=== PATIENT | male | born 1950 | race Caucasian/White ===

== ENCOUNTER → 2016-07-01 | Outpatient (CLI) | payer MEDICARE, OTHER ==
--- NOTE | 2016-07-01 18:14 | REP ---
CERVICAL SPINE, EIGHT VIEWS: HISTORY: Spondylosis. There is no acute fracture. The C4-5 through C7-T1 intervertebral discs are decreased in height consistent with disc degeneration. Osteophytes are present on C4 through C7. There is narrowing of the right C3 through C6 and left C4 through C6 neural foramina secondary to uncinate process hypertrophy. There are 3 mm of anterior subluxation of C3 on C4 with flexion. This is not seen in neutral or extension radiographs. IMPRESSION: Degenerative change as described above. Signed by Jc Rush MD 07/02/2016 08:45 A
--- NOTE | 2016-07-01 18:17 | REP ---
LUMBAR SPINE, SEVEN VIEWS: HISTORY: Spondylosis. There is no acute fracture or subluxation. The intervertebral discs are decreased in height. Vacuum phenomenon is present at the L4-5 level. These findings are consistent with disc degeneration. Osteophytes are present throughout the lumbar spine. There is narrowing of the L4-5 and L5-S1 facet joints. IMPRESSION: Degenerative change as described above. Signed by Jc Rush MD 07/02/2016 08:46 A
--- NOTE | 2016-07-01 18:32 | REP ---
MRI BRAIN WITHOUT CONTRAST: HISTORY: Normal pressure hydrocephalus. Several punctate areas of increased signal intensity on T2-weighted images are present in the periventricular and subcortical white matter. This represents small vessel ischemic disease. There is no intraparenchymal hemorrhage, infarct, mass or midline shift. The ventricular system and cortical sulci are dilated. The degree of ventricular dilatation is out of proportion to that seen in the cortical sulci. Exaggerated flow phenomenon is present in the third and fourth ventricles and aqueduct of Sylvius. There is no extracerebral collection. The sinuses are clear. IMPRESSION: There is dilatation of the ventricular system out of proportion to that seen in the cortical sulci. Exaggerated flow phenomenon is present in the third and fourth ventricle and aqueduct of Sylvius. These findings can be seen in normal pressure hydrocephalus. Signed by Jc Rush MD 07/02/2016 08:46 A
--- NOTE | 2016-07-02 09:44 | REP ---
MRI CERVICAL SPINE WITHOUT CONTRAST: HISTORY: Spondylosis. A disc bulge is present at the C3-4 level. There is mild effacement of the thecal sac without spinal cord compression. Bilateral uncinate process and facet hypertrophy are present. These findings produce moderate narrowing of the C3 neural foramina. A disc bulge with associated osteophyte formation is present at the C4-5 level. There is moderate effacement of the thecal sac without spinal cord compression. Bilateral uncinate process and facet hypertrophy are present. These findings produce moderate narrowing of the C4 neural foramina. A disc bulge with associated osteophyte formation is present at the C5-6 level. There is moderate effacement of the thecal sac without spinal cord compression. Bilateral uncinate process and right facet hypertrophy are present. These findings produce minimal and mild narrowing of the right and left C5 neural foramina respectively. A disc bulge with associated osteophytes formation is present at the C6-7 level. There is mild effacement of the thecal sac without spinal cord compression. Bilateral uncinate process hypertrophy is present. This produces minimal and mild narrowing of the right and left C6 neural foramina respectively. There is no other disc bulge or herniation. The remaining neural foramina are patent. The spinal cord is normal in signal intensity. There is no intradural extramedullary lesion. The C4-5 through C6-7 intervertebral discs are decreased in height consistent with disc degeneration. Increased signal intensity on T2-weighted images is present in the end plates of the C5-7 vertebral bodies. This represents degenerative change. IMPRESSION: There is cervical spondylosis at the C3-4 through C6-7 levels without spinal cord compression. Signed by Jc Rush MD 07/02/2016 09:57 A
--- NOTE | 2016-07-02 09:53 | REP ---
MR LUMBAR SPINE WITHOUT CONTRAST: HISTORY: Spondylosis. Decreased signal intensity on T2-weighted images is present in the L1-2 through L5-S1 intervertebral discs. The discs are decreased in height. These findings are consistent with disc degeneration. There is no disc bulge or herniation at the L1-2 level. The L1 nerves exit the neural foramina without compression. A diffuse disc bulge is present in the L2-3 level. There is minimal compression of the thecal sac. There is hypertrophy of the posterior articulating facets. The L2 nerves exit the neural foramina without compression. A diffuse disc bulge is present at the L3-4 level. There is minimal compression of the thecal sac. There is hypertrophy of the posterior articulating facets. The L3 nerves exit the neural foramina without compression. A diffuse disc bulge is small right paracentral disc extrusion are present at the L4-5 level. There is inferior migration of disc material. There is hypertrophy of the ligamenta flava and posterior articulating facets. These findings produce moderate central canal stenosis. There is compression of the right L4 nerve in the neural foramen. The left L4 nerve exits the neural foramen without compression. A diffuse disc bulge is present at the L5-S1 level. There is minimal compression of the thecal sac. There is hypertrophy of the posterior articulating facets. There is compression of the L5 nerves in the neural foramina. The conus medullaris is normal in appearance terminating at the level of the L1-2 intervertebral disc. Increased signal intensity on T2 weighted images is present in the endplates of the L2-5 vertebral bodies. This presents degenerative change. IMPRESSION: 1. Diffuse disc bulges at the L2-3, L3-4, and L5-S1 levels with minimal thecal sac compression. There is compression of the L5 nerves in the neural foramina. 2. Moderate central canal stenosis at the L4-5 level secondary to disc bulge, disc extrusion, ligamentous and facet hypertrophy. There is compression of the right L4 nerve in the neural foramen. Signed by Jc Rush MD 07/02/2016 09:57 A
== END ==
LOC: M RAD 15:26
PROVIDERS: ATTEND Neurological Surgery
DX: M47.892 Other spondylosis, cervical region (principal); M47.896 Other spondylosis, lumbar region; G91.2 (Idiopathic) normal pressure hydrocephalus

== ENCOUNTER → 2016-07-16 | Outpatient (CLI) | payer MEDICARE, OTHER ==
[2016-07-16 13:30] LABS: APPEARANCE, CSF CLEAR (CLEAR); COLOR, CSF COLORLESS (COLORLESS); CSF DIFF IF INDICATED? NO (NO); CSF DILUENT LOT # 6053; CSF TUBE# CELL CNT TUBE 4; RBC CSF AUTO 9 /mm3 (0-0); WBC CSF AUTO 2 /mm3 (0-10)
[2016-07-16 13:32] LABS: GLUCOSE CSF 73 MG/DL (40-75)
--- NOTE | 2016-07-16 15:38 | REP ---
Procedure: For guidance for lumbar puncture. History: Incontinence and unsteady gait The procedure was performed under the direct supervision of Dr. Rush. The risks and benefits of the procedure were explained to the patient and informed consent was obtained. The L3-4 interspace was localized using fluoroscopic guidance. The skin was prepped and draped in a sterile fashion. 1% lidocaine was used as a local anesthetic. Using fluoroscopic guidance a 22-gauge spinal needle was inserted and advanced into the thecal sac. The opening pressure measured 10 centimeters of water. 12 ml of spinal fluid was withdrawn and sent to lab. Closing pressure measured less than 10 cm of water. The the patient tolerated the procedure well and there were no immediate complications. After the appropriate amount of monitored convalescence the patient was discharged from the department. 7 seconds of fluoro time was utilized for this procedure. Reviewed by CRESCENCIO Bartlett 07/16/2016 02:17 PSigned by Jc Rush MD 07/16/2016 03:30 P
== END ==
LOC: M RADPRO 11:18
PROVIDERS: ATTEND Neurological Surgery
DX: G91.2 (Idiopathic) normal pressure hydrocephalus (principal)

== ENCOUNTER → 2016-08-04 | Outpatient (REF) | payer MEDICARE, OTHER | LOC: M LAB REF 16:15 | PROVIDERS: ATTEND Neurological Surgery | DX: Z01.818 Encounter for other preprocedural examination (principal); G91.2 (Idiopathic) normal pressure hydrocephalus ==

== ENCOUNTER → 2016-08-05 | Outpatient (CLI) | payer MEDICARE, OTHER ==
[2016-08-05 14:30] LABS: BASO % 0.4 % (0.0-1.0); EOS % 0.6 % (0.0-3.0); LARGE UNSTAINED CELL # 0.2 K/mm3 (0.0-0.4); LARGE UNSTAINED CELL % 2.4 % (0.0-4.0); LYMPH # 1.4 K/mm3 (1.5-4.5); LYMPH % 20.9 % (24.0-44.0); MEAN CORPUSCULAR HEMOGLOBIN 29.8 pg (27.0-33.0); MEAN CORPUSCULAR HGB CONC 33.3 g/dl (32.0-36.5); MEAN CORPUSCULAR VOLUME 89.4 fl (80.0-96.0); MONO # 0.5 K/mm3 (0.0-0.8); MONO % 6.8 % (0.0-5.0); NEUTROPHILS # 4.7 K/mm3 (1.8-7.7); NEUTROPHILS % 68.9 % (36.0-66.0); PLATELET COUNT, AUTOMATED 178 k/mm3 (150-450); RED CELL DISTRIBUTION WIDTH 12.6 % (11.5-14.5); WHITE BLOOD COUNT 6.8 K/mm3 (4.0-10.0)
[2016-08-05 14:31] LABS: INR 1.03
[2016-08-05 14:37] LABS: ALBUMIN/GLOBULIN RATIO 1.38 (1.00-1.93); ALKALINE PHOSPHATASE 118 U/L (45-117); ALT/SGPT 49 U/L (12-78); ANION GAP 6 MEQ/L (8-16); AST/SGOT 25 U/L (15-37); BILIRUBIN,TOTAL 0.9 MG/DL (0.2-1.0); BLOOD UREA NITROGEN 18 MG/DL (7-18); CALCIUM LEVEL 8.7 MG/DL (8.8-10.2); CARBON DIOXIDE LEVEL 31 MEQ/L (21-32); CHLORIDE LEVEL 104 MEQ/L (98-107); CREATININE FOR GFR 0.85 MG/DL (0.70-1.30); GLOMERULAR FILTRATION RATE > 60.0 (>49); GLUCOSE, FASTING 95 MG/DL (80-110); POTASSIUM SERUM 4.3 MEQ/L (3.5-5.1); SODIUM LEVEL 141 MEQ/L (136-145); TOTAL PROTEIN 6.9 GM/DL (6.4-8.2)
--- NOTE | 2016-08-05 14:49 | REP ---
Chest two views HISTORY: Cough Comparison: None The lungs are hyperinflated. The lungs are clear. The heart is normal in size. The pulmonary vasculature is normal in appearance. Degenerative change is present in the thoracic spine. IMPRESSION: No acute disease. Signed by Jc Rush MD 08/05/2016 02:41 P
[2016-08-05 14:53] LABS: COLLAGEN ADP 101 SECONDS (56-103)
--- NOTE | 2016-08-05 15:55 | ECGEPIP ---
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
== END ==
LOC: M LAB 13:38
PROVIDERS: ATTEND Neurological Surgery
DX: Z01.818 Encounter for other preprocedural examination (principal); R05 Cough; G91.2 (Idiopathic) normal pressure hydrocephalus; Z79.01 Long term (current) use of anticoagulants

== ENCOUNTER 2016-09-07 07:50 | Inpatient (IN) | payer MEDICARE, OTHER ==
--- NOTE | 2016-09-04 16:46 | HPEPDOC ---
General Date of Admission 09/07/2016 Chief Complaint The patient is a 66-year-old male admitted with a reason for visit of Normal Pressure Hydrocephalus. History of Present Illness Jc Avendaño is a pleasant 66-year-old right-handed male former smoker with a history of NPH, diabetes mellitus type 2, hypercholesterolemia, and hypertension who will be undergoing a planned CSF shunt surgery 09/07/[address] Batista. He is present today, 09/04/2016, with his Marisela who provides most of his history. His NPH has been a chronic problem that was diagnosed in [place] in 2012. He states that his symptoms have become more problematic. These symptoms include an unstable shuffling gait, frequent urination with occasional stress incontinence, and issues with his short-term and long-term memory. Patient states that he is unable to sit for 3 hours, however his claims that he sits in his chair "all night." He requires use of a quad cane during ambulation. His states that he will forget where the rooms are in the house and he must look at a diagram in order to remember. He had his deny any mood changes, irritability, or agitation. He denies fever, night sweats , headaches, numbness, weakness, tingling, increased fatigue, dizziness, weight loss or gain, significant changes in energy, chest pain, shortness of breath, abdominal pain, nausea or vomiting, or any bowel changes. He denies any prior head injuries. He has not had any recent infection or illness. Home Medications Scheduled (Multivitamin Men) 1 Tab Tab 1 TAB PO DAILY (Reported) Alfuzosin Hydrochloride (Alfuzosin HCl ER) 10 Mg Tab 10 MG PO DAILY (Reported) Aspirin (Aspirin 81) 81 Mg Tab 81 MG PO DAILY (Reported) Atorvastatin Calcium (Atorvastatin Calcium) 20 Mg Tab 20 MG PO DAILY (Reported ) Celecoxib (Celebrex) 100 Mg Cap 100 MG PO DAILY (Reported) UNSURE OF DOSE ALREADY STOPPED Donepezil Hcl (Donepezil HCl) 10 Mg Tab 10 MG PO DAILY (Reported) Finasteride (Proscar) 5 Mg Tab 5 MG PO DAILY (Reported) Lisinopril (Lisinopril) 5 Mg Tab 5 MG PO DAILY (Reported) Metformin Hydrochloride (Metformin HCl) 500 Mg Tab 1,000 MG PO BID (Reported) Sitagliptin Phosphate (Januvia) 25 Mg Tab 25 MG PO DAILY (Reported) Allergies Coded Allergies: No Known Allergies (Unverified , 08/31/16) Past Medical History Medical History Patient's adult medical history includes hypertension, diabetes mellitus type 2 , normal pressure hydrocephalus, hypercholesterolemia, lumbar spondylosis, cervical spondylosis, and occipital neuralgia. Surgical History Left THR 2013 Family History Mother: Leukemia, diabetes ( 86) Father: Smoker, emphysema ( 86) Sister: Multiple sclerosis 2 children aged 33 and 30, healthy Social History Recent Travel/Sick Contacts: Denies: Recent sick contacts, Recent travel Patient's prior occupation was in [employer]. He is not currently working and stopped at the age of 58. His household members include his and his dog. He is a former smoker 1 pack per day. He started smoking at the age of 19 and quit in 1985. Reports he rarely drinks alcohol, mainly socially. He denies any illicit drug use. Review of Symptoms Constitutional: Denies: Chills, Fatigue, Fever, Lethargy, Malaise, Night Sweats , Other, Weakness, Weight Loss Eyes: Denies: Conjunctivae inflammation, Eyelid inflammation, Other, Pain, Redness, Vision change ENT: Denies: Ear Pain, Epistaxis, Head Aches, Sore Throat Skin: Denies: Lesions, Rash Pulmonary: Denies: Cough, Dyspnea, Pleuritic Chest Pain Cardiovascular: Denies: Chest Pain, Edema, Lt Headedness, Orthopnea, Palpitations Gastrointestinal: Denies: Constipation, Diarrhea, Nausea, Vomiting Genitourinary: Reports: Frequency, Incontinence, Denies: Dysuria Hematologic: Denies: Bleeding Excessively, Bruising Endocrine: Denies: Polydipsia, Polyphagia, Polyuria Musculoskeletal: Reports: Back Pain Neurological: Reports: Confusion, Incoordination, Denies: Numbness, Seizures, Weakness Psych: Reports: Memory Issues, Mood Normal, Denies: Anxiety, Depression Physical Examination General Exam: Positive: Alert, Cooperative, No Acute Distress Eye Exam: Positive: Conjunctiva & lids normal, PERRLA ENT Exam: Positive: Atraumatic, Mucous membr. moist/pink, Pharynx Normal Neck Exam: Positive: Supple, Negative: Lymphadenopathy Chest Exam: Positive: Clear to auscultation, Normal air movement Heart Exam: Positive: Rate Normal (heart sounds are distant) Abdomen Exam: Positive: Soft, Negative: Tenderness Extremity Exam: Negative: Clubbing, Cyanosis, Edema, Normal pulses (radial pulses are 2+ bilaterally and dorsalis pedis pulse is 1+ bilaterally) Skin Exam: Negative: Nl turgor and temperature (skin is dry with mildly decreased turgor) Neuro Exam: Positive: Cranial Nerves 3-12 NL (with the exception of course extraocular movements and mild over shooting.), Other (patient is alert and oriented to person and place. Rate and flow speech is ordinary. Speech is fluent. Muscle strength is 5 out of 5 and equal bilaterally. No significant atrophy is present. DTRs are symmetric but decreased throughout. No ankle clonus bilaterally. Negative Babinski. Sensation is decreased to vibration and sharp distally and lower extremities and intact in upper extremities. There is mild dysmetria and bradykinesia with rapid alternating movements of each hand and foot. Gait was assessed with the use of his quad cane. He is noted to have a shuffling and unsteady gait. Because of this, tandem walking was deferred. Romberg's is positive. On back examination there is tenderness over the sacroiliac joints, worse on the right side.) Psych Exam: Positive: Mood NL Vital Signs His blood pressure is 122/61 mmHg, HR 51, Height (in): 76 Weight (kg): 111.3 BMI (kg): 29.8 Assessment/Plan 1. Normal pressure hydrocephalus 2. Sacroiliitis 3. Occipital neuralgia 4. Cervical spondylosis 5. Lumbar spondylosis Plan / VTE VTE Prophylaxis Ordered?: Yes Plan Plan Patient and his wish to proceed with the CSF shunt surgery which would be a right ventriculoperitoneal shunt. LIVESTOCK PRODUCER shunt has been scheduled for Wednesday, . Patient and his understand the surgery has risk and that he is a high risk candidate considering his multiple comorbidities and long history of tobacco use. Patient and his understand the scope, expected outcome, sequela in all possible risk of surgery. They understand that the risks include but are not limited to , coma, CSF leak, meningitis, seizures or status epilepticus, persistence or worsening of symptoms and/or deficits, persistent vegetative state, dependency on life support measures, loss of all bodily functions, bleeding, CVA, bowel perforation, peritonitis, shunt migration and/ or failure of surgery, need for multiple surgeries, infection, [place], PE, DVT, and any catastrophic sequela. SRIRAM WYNN PA-C Sep 04, 2016 16:46
[2016-09-07] VITALS (10 sets, daily range): BP systolic 116–145; BP diastolic 57–97
[~2016-09-07] VITALS: Ht 193 cm; Wt 109.5 kg
[~2016-09-07 07:50] MED LIST: ALFU10TA2 PO; ASPI1TAB PO; ATOR1TAB21 PO; CELE100C PO; DONETAB6 PO; JANU25TA PO; LISI-542 PO; METF500T PO; MULT1TAB11 PO; PROS5TAB PO
[2016-09-07] MEDS ORDERED: LR 1,000 ML IV SCH ×2 (08:00→14:00)
[2016-09-07] MEDS ORDERED: CEFUROXIME SODIUM 1.5 GM in D5W MINI-BAG PLUS 50 ML IV ONE (08:00)
[2016-09-07] MEDS ORDERED: dexameTHASONE 4 MG/ML 1ML VIAL (J1100) IV ONE (09:00)
[2016-09-07] MEDS ORDERED: fentaNYL 100 MCG/2 ML INJECTION (J3010) As Ordered ONE (09:45)
[2016-09-07] MEDS ORDERED: NEOSTIGMINE 1MG/ML 5 ML SYRINGE (J2710) As Ordered ONE (09:46)
[2016-09-07] MEDS ORDERED: LIDOCAINE 2% INJ 100 MG/5 ML SDV (FOR ANES.) As Ordered ONE (09:46)
[2016-09-07] MEDS ORDERED: GLYCOPYRROLATE INJ 0.2 MG/ML 2 ML VIAL As Ordered ONE (09:46)
[2016-09-07] MEDS ORDERED: PROPOFOL 200 MG/20 ML VIAL As Ordered ONE (09:46)
[2016-09-07] MEDS ORDERED: ROCURONIUM BROMIDE 50 MG/5 ML VIAL As Ordered ONE ×2 (09:46→11:42)
[2016-09-07] MEDS ORDERED: MIDAZOLAM INJ 2 MG/2 ML VIAL (J2250) As Ordered ONE (09:46)
[2016-09-07] MEDS ORDERED: NAFCILLIN SOD 1 GM VIAL (S0032) As Ordered ONE (10:17)
[2016-09-07] MEDS ORDERED: LIDOCAINE W/EPINEPHRINE 1% 20ML VIAL As Ordered ONE (10:17)
[2016-09-07] MEDS ORDERED: THROMBIN SOLN 20,000 UNITS KIT As Ordered ONE (10:17)
[2016-09-07] MEDS ORDERED: ePHEDrine SULFATE 25 MG/5 ML(5MG/ML) SYRINGE As Ordered ONE (11:32)
[2016-09-07] MEDS ORDERED: fentaNYL 250 MCG/5 ML INJECTION (J3010) As Ordered ONE (11:48)
[2016-09-07] MEDS ORDERED: dexameTHASONE 4 MG/ML 1ML VIAL (J1100) As Ordered ONE ×2 (11:50→12:14)
[2016-09-07] MEDS ORDERED: ONDANSETRON 4MG/2ML VIAL (J2405) As Ordered ONE ×2 (13:20→13:55)
[2016-09-07] MEDS ORDERED: KCL 20MEQ IN D5/.45NACL 1000ML As Ordered ONE (13:58)
[2016-09-07] MEDS ORDERED: ONDANSETRON 4MG/2ML VIAL (J2405) IV PRN (14:00)
[2016-09-07] MEDS ORDERED: PERCOCET 5MG/325MG TAB PO PRN (14:00)
[2016-09-07] MEDS ORDERED: METOCLOPRAMIDE INJ 10MG/2ML VIAL (J2765) IV PRN (14:00)
[2016-09-07 14:05] LABS: GLUCOSE CSF 79 MG/DL (40-75)
[2016-09-07] MEDS: KCL 20MEQ IN D5/0.45NS 1000ML 1,000 ML IV SCH (14:05)
[2016-09-07] MEDS: fentaNYL 100 MCG/2 ML INJECTION (J3010) IV PRN ×4 (14:08→14:35)
[2016-09-07] MEDS: HYDROmorphone HCL 1 MG/ML SYRINGE (J1170) IV PRN ×3 (14:28→14:50)
[2016-09-07] MEDS ORDERED: HYDROmorphone HCL 1 MG/ML SYRINGE (J1170) As Ordered ONE (14:32)
[2016-09-07] MEDS ORDERED: GLUCOSE 4 GM CHEW TABLET PO PRN (15:00)
[2016-09-07] MEDS ORDERED: DEXTROSE 50% 50 ML SYRINGE IV PRN (15:00)
[2016-09-07] MEDS ORDERED: GLUCAGON FOR INJ 1 MG VIAL (J1610) SC PRN (15:00)
[2016-09-07] MEDS: NAFCILLIN SOD 1 GM in D5W MINI-BAG PLUS 100 ML IV SCH ×2 (16:43→20:52)
[2016-09-07] MEDS: HumaLOG INSULIN (NovoLOG) PER UNIT SC SCH ×2 (16:59→20:43)
[2016-09-07] MEDS: ATORVASTATIN 20 MG TAB PO SCH (20:52)
[2016-09-07] MEDS: FINASTERIDE 5 MG TAB PO SCH (20:52)
--- NOTE | 2016-09-07 22:18 | CR ---
DATE OF CONSULTATION: 09/07/2016 TIME PATIENT WAS SEEN: This afternoon at 1530. CONSULTING PHYSICIAN: Dr. Batista WAXING MACHINE OPERATOR: Dr. Laura Mejias REASON FOR CONSULTATION: Medical management. CHIEF COMPLAINT: Normal pressure hydrocephalus. HISTORY OF PRESENT ILLNESS: A 66-year-old male admitted for elective normal pressure hydrocephalus shunting placement with Dr. Batista with a past medical history of normal pressure hydrocephalus, type 2 diabetes, hypercholesterolemia, hypertension. Received surgery by Dr. Batista today for the shunt placement. Patient was interviewed in the intensive care unit (ICU). He denies any discomfort since the surgery. From patient, the surgery was a success. Patient currently feels better than before the surgery started. Denies any blurred vision. Any change of smell, hearing, or taste. Denies any weakness on any side of his body. Denies any slurred speech. Denies any chest pain, trouble bleeding, abdominal pain, nausea, vomiting, diarrhea, or constipation. Patient's last bowel movement was yesterday, which was normal. Denies any bleeding from anywhere besides the surgical sites. ALLERGIES: No known drug allergies. HOME MEDICATIONS: Including: - alfuzosin extended release 10 mg one tablet by mouth daily - aspirin 81 mg one tablet by mouth daily - atorvastatin 20 mg one tablet by mouth daily - Celebrex 100 mg one tablet by mouth daily - donepezil 10 mg one tablet by mouth daily - Proscar 5 mg one tablet by mouth daily - lisinopril 5 mg one tablet by mouth daily - metformin 1000 mg one tablet by mouth twice a day - multivitamin one tablet by mouth daily - Januvia 25 mg one tablet by mouth daily PAST MEDICAL HISTORY: 1. Type 2 diabetes, [id number]. 2. Normal pressure hydrocephalus. 3. Hyperlipidemia. 4. Hypertension. 5. Arthritis. 6. Benign prostatic hypertrophy (BPH). 7. Hyperlipidemia. PAST SURGICAL HISTORY: Including left total hip replacement in 2012. SOCIAL HISTORY: Patient denies any smoking. Quit 30 years ago. Denies any drinking or recreational drug use. Patient used to be in [employer] and used to play football. Patient lives with his and his dog. FAMILY HISTORY: Mother had leukemia and diabetes. Father was a smoker and had emphysema. Sister had multiple sclerosis. REVIEW OF SYSTEMS: GENERAL: Patient denies fevers or chills, any recent traveling or sick contact, weight loss. HEENT: Denies any changes with vision, smell, hearing, or taste, any headaches. Denies any sore throat, trouble swallowing. CARDIOVASCULAR: Denies any chest pain, trouble breathing. PULMONARY: Denies any trouble breathing. GASTROINTESTINAL: Denies any abdominal pain, nausea, vomiting, diarrhea, or constipation. GENITOURINARY: Denies any problem with urination. Hematology/oncology: Denies any easy bruising, any bleeding anywhere. Endocrine: Admits to type 2 diabetes. Denies any excessive heat or cold intolerance. MUSCULOSKELETAL: Admits to arthritis. NEUROLOGIC: Denies any weakness on any one side of his body. Prior to surgery patient does have shuffling gait, being unstable with gait, and long-term memory problems per medical record; however, patient, himself, is a poor historian. PSYCHIATRIC: Denies any problem with anxiety or depression, however, admits to problem with memory. PHYSICAL EXAMINATION: VITAL SIGNS: Temperature 97.2, pulse 91, respirations 16, blood pressure 129/78, oxygen was saturating at 97% on 3 liters of nasal cannula. GENERAL: Patient is a tall, elderly male who was well developed, well nourished. Does not appear to be in distress, resting comfortably in intensive care unit (ICU) bed with the head elevated at 30 degrees. HEENT: Normocephalic. Patient did have surgical incisions at the right side of his temporoparietal region. Incision was dry, clean, and intact. Pupils equal, round, and reactive to light. Mucous membranes moist. NECK: Supple. No neck lymphadenopathy. Patient does have a shunt extending through subcutaneously at the right side; otherwise, patient's eyebrow raise was equal bilaterally. Tongue protruding was midline. Sensations were intact in the face. CARDIOVASCULAR: Regular rate and rhythm. S1, S2. No murmurs, rubs, or gallops. LUNGS: Clear to auscultation bilaterally. No wheezes, rales, or rhonchi. ABDOMEN: Positive bowel sounds. Soft, nontender, nondistended. No peritoneal signs. No ecchymosis. EXTREMITIES: No edema, clubbing, or cyanosis. SKIN: Warm and dry. NEUROLOGIC: Cranial nerves II-XII intact. No focal neurologic deficit. LABORATORY DATA: No new labs currently. Patient did have a CSF fluid analysis, which is mostly pending. Glucose was 79, and total protein was 71.5. Patient's Accu-Chek glucose was 133 and 147. No new imaging. CURRENT MEDICATIONS: At this point, including: - nafcillin 1 gram IV every 6 hours - D5W as needed - glucose 16 grams as needed - glucagon 1 mg as needed - potassium chloride with D5 at a rate of 100 mL per hour ASSESSMENT AND PLAN: A 66-year-old male with a past medical history of normal pressure hydrocephalus, type 2 diabetes, [id number], hyperlipidemia, hypertension, benign prostatic hypertrophy (BPH), and arthritis presents with normal pressure hydrocephalus status post ventriculoperitoneal (PAPER LATCHER) shunt, postoperative day number [address] Batista. Patient tolerated procedure well. Wound care, pain management, and diet per neurosurgery, Dr. Batista. Will continue to follow their recommendations. 2. [id number]-ktlegukmi type 2 diabetes. Continue insulin sliding scale before meals and at bedtime. Continue fingersticks and continue patient on carbohydrate-consistent diet. IV fluid per general surgery. 3. Osteoarthritis. Pain management per general surgery. 4. Hyperlipidemia. Continue home statin. 5. Hypertension. Will hold lisinopril 5 mg for now and restart as needed. 6. BPH, stable. Will continue Proscar. 7. Normal pressure hydrocephalus with donepezil. Will hold for now and restart as needed. 8. Deep vein thrombosis (DVT) prophylaxis, on sequential compression devices (SCDs) and management per neurosurgery. DISPOSITION: Will continue to follow neurosurgery, continue to manage patient medically, and continue neurologic checks. Patient has been discussed with attending doctor, Dr. Mejias. Patient will be going to Dr. Mondragon tomorrow. My preceptor for this patient encounter was Dr. Laura Mejias. The preceptor was physically present in the building during the encounter and was fully available as needed. All aspects of the patient interview, examination, medical decision making process, and medical care plan development were reviewed and approved by the preceptor. The preceptor is aware and concurs with the plan as stated in the body of this note and will attest to such by his/her co-signature.
[2016-09-08] VITALS (18 sets, daily range): BP systolic 91–131; BP diastolic 48–78
[2016-09-08] MEDS: KCL 20MEQ IN D5/0.45NS 1000ML 1,000 ML IV SCH (00:15)
[2016-09-08] MEDS: NAFCILLIN SOD 1 GM in D5W MINI-BAG PLUS 100 ML IV SCH ×4 (05:12→21:03)
[2016-09-08 05:17] LABS: BASO % 0.1 % (0.0-1.0); EOS # 0.1 K/mm3 (0.0-0.50); EOS % 0.5 % (0.0-3.0); LARGE UNSTAINED CELL # 0.1 K/mm3 (0.0-0.4); LARGE UNSTAINED CELL % 0.5 % (0.0-4.0); LYMPH # 0.8 K/mm3 (1.5-4.5); LYMPH % 4.9 % (24.0-44.0); MEAN CORPUSCULAR HEMOGLOBIN 29.9 pg (27.0-33.0); MEAN CORPUSCULAR HGB CONC 33.4 g/dl (32.0-36.5); MEAN CORPUSCULAR VOLUME 89.4 fl (80.0-96.0); MONO # 0.8 K/mm3 (0.0-0.8); MONO % 5.3 % (0.0-5.0); NEUTROPHILS # 13.8 K/mm3 (1.8-7.7); NEUTROPHILS % 88.7 % (36.0-66.0); PLATELET COUNT, AUTOMATED 184 k/mm3 (150-450); RED CELL DISTRIBUTION WIDTH 12.4 % (11.5-14.5); WHITE BLOOD COUNT 15.6 K/mm3 (4.0-10.0)
[2016-09-08 05:31] LABS: ALBUMIN 3.2 GM/DL (3.2-5.2); ALBUMIN/GLOBULIN RATIO 0.97 (1.00-1.93); ALKALINE PHOSPHATASE 105 U/L (45-117); ALT/SGPT 31 U/L (12-78); ANION GAP 9 MEQ/L (8-16); AST/SGOT 16 U/L (15-37); BILIRUBIN,TOTAL 0.8 MG/DL (0.2-1.0); BLOOD UREA NITROGEN 11 MG/DL (7-18); CALCIUM LEVEL 8.3 MG/DL (8.8-10.2); CARBON DIOXIDE LEVEL 26 MEQ/L (21-32); CHLORIDE LEVEL 106 MEQ/L (98-107); CREATININE FOR GFR 0.98 MG/DL (0.70-1.30); GLOMERULAR FILTRATION RATE > 60.0 (>49); GLUCOSE, FASTING 192 MG/DL (80-110); POTASSIUM SERUM 4.2 MEQ/L (3.5-5.1); SODIUM LEVEL 141 MEQ/L (136-145); TOTAL PROTEIN 6.5 GM/DL (6.4-8.2)
[2016-09-08] MEDS: HumaLOG INSULIN (NovoLOG) PER UNIT SC SCH ×4 (08:08→20:37)
--- NOTE | 2016-09-08 10:28 | RO ---
DATE OF PROCEDURE: 09/07/2016 PREPROCEDURE DIAGNOSIS: Normal pressure hydrocephalus. POSTPROCEDURE DIAGNOSIS: Normal pressure hydrocephalus. PROCEDURE: Ventriculoperitoneal shunt insertion. SURGEON: Dr. Jer Real ASSISTING PHYSICIAN: Dr. Rachael Batista ESTIMATED BLOOD LOSS: For my portion of the case was minimal. COMPLICATIONS: None. INDICATIONS FOR PROCEDURE: Patient is a 66-year-old male patient of Dr. Batista's who has had problems with dementia and shuffling of his feet. He had improvement after a spinal tap therefore recommendation was to proceed with PIANO REFINISHER shunt placement. Risks and benefits of the procedure were discussed with Dr. Batista. The risks and benefits of my portion of procedure were also discussed, which included, but are not limited to bleeding, infection, hernia formation, damage to surrounding structures, shunt infection, and need for further surgery. Informed consent was obtained and the procedure was planned. PROCEDURE: The patient was brought back to operating room 1 and placed in the supine position. After induction of anesthesia, the right scalp, neck, chest, and the entire abdomen were sterilely prepped and draped. Next, a time-out was done to confirm proper patient and proper procedure. Following that a 2 cm supraumbilical incision was made in the midline and then Dr. Batista did his portion of procedure on the right neck and right scalp, tunneled the catheter from the abdomen all the way up to the neck and scalp. He then completed that portion of the procedure. Once the catheter was tunneled, I did another 5 mm incision in the left upper quadrant. Veress needle was inserted and the abdomen was insufflated to 15 mmHg. Next, a Veress needle was removed. A 5 mm Optiview port was used to gain access to the abdomen. Once abdomen was entered, needle was placed through the supraumbilical incision into the abdomen under direct visualization, followed by the passage of a guidewire. Once a guidewire was placed, it was followed down into the pelvis. The needle was then removed and a split sheath introducer was placed over top of it. The guidewire was then removed, and the PIANO REFINISHER shunt was placed through the split sheath introducer and all the way down into the pelvis under direct visualization. Split sheath introducer was removed. The abdomen was desufflated. Skin incision at the left upper quadrant and the supraumbilical were closed with #4-0 Vicryl subcuticular suture. The abdomen was then cleaned and dried. Steri-Strips, 4x4 and tape were applied, thus ending my portion of the procedure.
--- NOTE | 2016-09-08 11:35 | IPNPDOC ---
Date Seen The patient was seen on 09/08/16. Progress Note Hospitalist Progress Note Subjective: Patient states that he feels well, other than some pain in his shoulder. Objective: Physical Exam: Vitals: Vital Sign - Last 24 Hours 09/07/16 09/07/16 09/07/16 09/07/16 13:46 14:01 14:08 14:16 Temp 97.7 Pulse 124 107 102 Resp 20 20 16 18 B/P 143/70 131/71 137/85 Pulse Ox 89 96 95 96 O2 Delivery Nasal Cannula Nasal Cannula Nasal Cannula Nasal Cannula O2 Flow Rate 3 3 3.0 3 09/07/16 09/07/16 09/07/16 09/07/16 14:17 14:20 14:28 14:30 Temp 97.2 97.5 97.5 Pulse 57 88 88 Resp 16 16 B/P 121/74 143/77 143/77 Pulse Ox 96 95 98 98 O2 Delivery Nasal Cannula Nasal Cannula Nasal Cannula Nasal Cannula O2 Flow Rate 3.0 3.0 3.0 3.0 09/07/16 09/07/16 09/07/16 09/07/16 14:30 14:31 14:35 14:36 Temp 97.5 Pulse 94 94 88 Resp 16 16 B/P 129/64 132/68 143/77 Pulse Ox 97 97 3 98 O2 Delivery Nasal Cannula Nasal Cannula Nasal Cannula Nasal Cannula O2 Flow Rate 3 3 3.0 3.0 09/07/16 09/07/16 09/07/16 09/07/16 14:45 14:50 15:00 15:34 Temp 97.5 97.2 97.6 Pulse 88 91 88 Resp B/P 143/77 129/78 133/81 Pulse Ox 98 98 97 97 O2 Delivery Nasal Cannula Nasal Cannula Nasal Cannula O2 Flow Rate 3.0 3 2.0 09/07/16 09/07/16 09/07/16 09/07/16 16:00 16:30 17:00 17:30 Pulse 88 78 76 76 Resp 24 24 B/P 129/72 122/97 145/78 124/93 Pulse Ox 96 97 98 96 O2 Delivery Nasal Cannula Nasal Cannula Nasal Cannula Nasal Cannula O2 Flow Rate 2.0 2.0 2.0 2.0 09/07/16 09/07/16 09/07/16 09/07/16 18:00 20:00 21:00 22:01 Temp 96.4 Pulse 70 64 63 69 Resp 22 20 18 20 B/P 127/57 127/58 119/71 123/58 Pulse Ox 97 95 94 91 O2 Delivery Nasal Cannula Room Air Room Air Room Air O2 Flow Rate 2.0 09/07/16 09/08/16 09/08/16 09/08/16 23:01 00:01 01:01 02:01 Temp 96.8 Pulse 61 57 57 56 Resp 18 20 18 20 B/P 116/60 108/61 116/62 119/56 Pulse Ox 95 94 96 97 O2 Delivery Room Air Room Air Room Air Room Air 09/08/16 09/08/16 09/08/16 09/08/16 03:01 04:01 05:01 06:01 Temp 97.3 Pulse 60 55 54 52 Resp 20 20 18 B/P 98/55 114/57 113/59 91/48 Pulse Ox 95 98 95 94 O2 Delivery Room Air Room Air Room Air Room Air 09/08/16 09/08/16 09/08/16 08:00 09:00 10:00 Temp 98.2 Pulse 63 56 60 Resp 20 20 B/P 98/52 119/62 107/65 Pulse Ox 97 96 O2 Delivery Room Air Room Air General: Awake, alert, sitting in the chair. HEENT: Moist mucous membranes CV: Regular rate and rhythm, no murmurs rubs or gallops Lungs: Clear to Auscultation bilaterally Abd: Soft, nontender, nondistended Extremities: No edema Neuro: Alert And oriented 3, normal speech Psych: Normal mood and affect Labs and Imaging: Laboratory Tests 09/08/16 04:53 Calcium Level 8.3 L, Aspartate Amino Transf (AST/SGOT) 16, Alanine Aminotransferase (ALT/SGPT) 31, Alkaline Phosphatase 105, Total Bilirubin 0.8, Total Protein 6.5, Albumin 3.2, Red Blood Count 4.53, Mean Corpuscular Volume 89.4, Mean Corpuscular Hemoglobin 29.9, Mean Corpuscular Hemoglobin Concent 33.4 , Red Cell Distribution Width 12.4, Neutrophils (%) (Auto) 88.7 H, Lymphocytes ( %) (Auto) 4.9 L, Monocytes (%) (Auto) 5.3 H, Eosinophils (%) (Auto) 0.5, Basophils (%) (Auto) 0.1, Neutrophils # (Auto) 13.8 H, Lymphocytes # (Auto) 0.8 L, Monocytes # (Auto) 0.8, Eosinophils # (Auto) 0.1, Basophils # (Auto) 0.0 Assessment and Plan: 66-year-old male with hypertension, hyperlipidemia, diabetes mellitus type 2, normal pressure hydrocephalus, BPH who underwent PAN PUSHER shunt with Dr. Batista. We have been asked to see the patient in consultation for medical management of his diabetes and hypertension. 1. Hypertension: Currently holding home TORO inhibitor. Blood pressure has been soft. We'll continue to hold this. 2. Diabetes mellitus type 2: Clear currently holding the patient's home metformin and Januvia. We will continue to use sliding scale insulin while the patient is in-house. 3. Hyperlipidemia: Continue home statin. 4. BPH: Continue home Proscar. DVT prophylaxis: As per his surgical team VS, I&O, 24H, Fishbone Vital Signs/I&O Vital Signs Date Time Temp Pulse Resp B/P Pulse Ox O2 Delivery O2 Flow Rate FiO2 09/08/16 10:00 60 107/65 09/08/16 09:00 20 96 Room Air 09/08/16 08:00 98.2 09/07/16 18:00 2.0 I&O- Last 24 Hours up to 6 AM 09/08/16 05:59 Intake Total 3640 ml Output Total 2050 ml Balance 1590 ml Laboratory Data 24H LABS Laboratory Tests 2 09/07/16 14:05: Bedside Glucose (Misc Panel) 147H 09/07/16 16:56: Bedside Glucose (Misc Panel) 202H 09/07/16 20:42: Bedside Glucose (Misc Panel) 223H 09/08/16 04:53: Blood Urea Nitrogen 11, Creatinine 0.98, Sodium Level 141, Potassium Level 4.2, Chloride Level 106, Carbon Dioxide Level 26, Calcium Level 8.3L, Aspartate Amino Transf (AST/SGOT) 16, Alanine Aminotransferase (ALT/SGPT) 31, Alkaline Phosphatase 105, Total Bilirubin 0.8, Total Protein 6.5, Albumin 3.2, Albumin/ Globulin Ratio 0.97L, Anion Gap 9, White Blood Count 15.6H, Red Blood Count 4.53 , Hemoglobin 13.5L, Hematocrit 40.4L, Mean Corpuscular Volume 89.4, Mean Corpuscular Hemoglobin 29.9, Mean Corpuscular Hemoglobin Concent 33.4, Red Cell Distribution Width 12.4, Platelet Count 184, Neutrophils (%) (Auto) 88.7H, Lymphocytes (%) (Auto) 4.9L, Monocytes (%) (Auto) 5.3H, Eosinophils (%) (Auto) 0.5, Basophils (%) (Auto) 0.1, Neutrophils # (Auto) 13.8H, Lymphocytes # (Auto) 0.8L, Monocytes # (Auto) 0.8, Eosinophils # (Auto) 0.1, Basophils # (Auto) 0.0, Glomerular Filtration Rate > 60.0, Large Unclassified Cells # 0.1, Large Unclassified Cells % 0.5 CBC/BMP Laboratory Tests 09/08/16 04:53 Calcium Level 8.3 L, Aspartate Amino Transf (AST/SGOT) 16, Alanine Aminotransferase (ALT/SGPT) 31, Alkaline Phosphatase 105, Total Bilirubin 0.8, Total Protein 6.5, Albumin 3.2, Red Blood Count 4.53, Mean Corpuscular Volume 89.4, Mean Corpuscular Hemoglobin 29.9, Mean Corpuscular Hemoglobin Concent 33.4 , Red Cell Distribution Width 12.4, Neutrophils (%) (Auto) 88.7 H, Lymphocytes ( %) (Auto) 4.9 L, Monocytes (%) (Auto) 5.3 H, Eosinophils (%) (Auto) 0.5, Basophils (%) (Auto) 0.1, Neutrophils # (Auto) 13.8 H, Lymphocytes # (Auto) 0.8 L, Monocytes # (Auto) 0.8, Eosinophils # (Auto) 0.1, Basophils # (Auto) 0.0 JAVIER BUSTILLO Sep 08, 2016 11:35
[2016-09-08] MEDS: LIDOCAINE 5% (LIDODERM) PATCH TD SCH (11:51)
[2016-09-08] MEDS: ACETAMINOPHEN TAB 650MG DOSE (2X325MG) PO PRN ×2 (11:52→19:59)
--- NOTE | 2016-09-08 11:52 | RO ---
DATE OF PROCEDURE: 09/07/2016 PREOPERATIVE DIAGNOSIS: Hydrocephalus/normal pressure hydrocephalus (NPH) dementia. POSTOPERATIVE DIAGNOSIS: Hydrocephalus/normal pressure hydrocephalus (NPH) dementia. Brain swelling. PROCEDURE: Placement of right ventriculoperitoneal shunt using Medtronic Strata valve programmed at 1.5. Multiple right frontal lobe biopsies. SURGEON: Rachael Batista MD SURGEON: Dr. Jer Real, for the abdominal portion. UTILIZATION MANAGEMENT UM NURSE: None. ANESTHESIA: General. FINDINGS: Please see my office notes for detailed preoperative evaluation. Patient with progressive dementia, gait failure and urinary incontinence. Patient and his were seen in the preoperative area. There was no gross change in his dementia or his neurological status, though his felt that he is getting still worse since the time I saw him. His also had a degree of confusion as she claims she does not know why she or the patient is here, and after sharing my office notes, she realized that she had all the information she needs and she wished to proceed with the surgery. The patient would have lapses or orientation times three and during these moments he was aware that he is here for a shunt surgery. After all matters pertaining to surgery, anesthesia, and followup care have been discussed with her again, she wished to proceed with surgery. She understood the salvage nature of the procedure and also understood the scope, expected outcome and all possible complications of surgery. She understood the risk of surgery included, but not limited to , spinal fluid leakage, meningitis, persistence or worsening of symptoms and/or deficits, failure of surgery and/or hardware, need for multiple surgeries, seizure disorder, status epilepticus, loss of any or all vital bodily functions, dependency on life support measures, persistent vegetative state, intracerebral bleeding and/or any catastrophic sequelae. The patient and his understood the salvage nature of he procedure. After informed consent and after all matters pertaining to surgery, anesthesia and followup care have been discussed with her again, she wished to proceed with surgery. DESCRIPTION OF PROCEDURE: Once in the operating room, general endotracheal anesthesia was given. The area of surgery was prepped and draped in the usual sterile fashion. A right coronal skin incision was given, the galea was reached. The wound edges were held apart with the help of self retaining retractors. The periosteum was scraped. A bur hole was created in the usual fashion, about 2 cm from the midline and the coronal suture. The dura was opened and a small corticectomy was performed and small pieces of brain were sent for pathological diagnosis. The brain appeared to be swollen and edematous. At this time, an abdominal skin incision was given and the right umbilical and paramedian region. Anterior rectus sheath was reached. A shunt tunneler was then tunneled from this abdominal incision to the coronal incision using the help of two 10 incisions. The shunt assembly was now connected to a Medtronic Strata valve, which was programmed at 1.5. The valve was secured with #2-0 silk ties with the peritoneal catheter, and at this time, a ventriculostomy was performed. Spinal fluid gushed out and the pressure appeared to be between 30 or 40, and it gushed out over my gown, several centimeters away. After the stylette was removed from the ventriculostomy, it was connected to the shunt valve and secured with #2-0 silk. At the conclusion of this procedure, the shunt was flowing freely at the peritoneal ends. Dr. Real then performed a laparotomy and placed the catheter in the abdominal cavity. The details of his procedure will be found in his dictation note. The three cranial wounds were closed in anatomical layers. Blood loss was about 30 mL or less. The patient tolerated the procedure well and was transferred to the recovery room in stable condition. At the time of this dictation in the recovery room, he was awake and alert and verbalizing and following commands without any gross focal motor deficits. cc: Harshal Story MD *Leodan Arroyo MD
[2016-09-08 20:40] LABS: RBC CSF AUTO 59 /mm3 (0-0); WBC CSF AUTO 2 /mm3 (0-10)
[2016-09-08 20:43] LABS: APPEARANCE, CSF CLEAR (CLEAR); COLOR, CSF COLORLESS (COLORLESS); CSF DIFF IF INDICATED? NO (NO)
[2016-09-08 20:44] LABS: CSF DILUENT LOT # 6165; CSF TUBE# CELL CNT TUBE 3
[2016-09-08] MEDS: **NOTE PATIENT COMMENT** MISC XX SCH (21:00)
[2016-09-08] MEDS: FINASTERIDE 5 MG TAB PO SCH (21:03)
[2016-09-08] MEDS: ATORVASTATIN 20 MG TAB PO SCH (21:03)
[2016-09-09] VITALS (12 sets, daily range): BP systolic 89–134; BP diastolic 54–75
[2016-09-09] MEDS: ACETAMINOPHEN TAB 650MG DOSE (2X325MG) PO PRN ×3 (03:20→21:31)
[2016-09-09] MEDS: NAFCILLIN SOD 1 GM in D5W MINI-BAG PLUS 100 ML IV SCH ×4 (03:20→21:26)
[2016-09-09 05:23] LABS: BASO % 0.2 % (0.0-1.0); EOS % 0.6 % (0.0-3.0); LARGE UNSTAINED CELL # 0.2 K/mm3 (0.0-0.4); LYMPH # 2.5 K/mm3 (1.5-4.5); LYMPH % 24.8 % (24.0-44.0); MEAN CORPUSCULAR HEMOGLOBIN 30.2 pg (27.0-33.0); MEAN CORPUSCULAR HGB CONC 33.9 g/dl (32.0-36.5); MONO # 0.8 K/mm3 (0.0-0.8); MONO % 8.9 % (0.0-5.0); NEUTROPHILS # 5.9 K/mm3 (1.8-7.7); NEUTROPHILS % 63.5 % (36.0-66.0); PLATELET COUNT, AUTOMATED 165 k/mm3 (150-450); RED CELL DISTRIBUTION WIDTH 12.7 % (11.5-14.5); WHITE BLOOD COUNT 9.2 K/mm3 (4.0-10.0)
[2016-09-09 06:02] LABS: ALBUMIN 2.9 GM/DL (3.2-5.2); ALBUMIN/GLOBULIN RATIO 0.94 (1.00-1.93); ALKALINE PHOSPHATASE 93 U/L (45-117); ALT/SGPT 26 U/L (12-78); ANION GAP 8 MEQ/L (8-16); AST/SGOT 14 U/L (15-37); BILIRUBIN,TOTAL 0.8 MG/DL (0.2-1.0); BLOOD UREA NITROGEN 12 MG/DL (7-18); CARBON DIOXIDE LEVEL 29 MEQ/L (21-32); CHLORIDE LEVEL 105 MEQ/L (98-107); CREATININE FOR GFR 0.91 MG/DL (0.70-1.30); GLOMERULAR FILTRATION RATE > 60.0 (>49); GLUCOSE, FASTING 144 MG/DL (80-110); POTASSIUM SERUM 3.5 MEQ/L (3.5-5.1); SODIUM LEVEL 142 MEQ/L (136-145)
[2016-09-09] MEDS: HumaLOG INSULIN (NovoLOG) PER UNIT SC SCH ×4 (07:27→21:00)
--- NOTE | 2016-09-09 08:24 | IPN ---
DATE: 09/09/2016 66-year-old gentleman seen at bedside, status post INTERNAL AUDIT CONSULTANT shunt placed by Dr. Batista a few days ago. Doing well. Eating breakfast sitting up in chair. Nursing informs me that he did appear to be slightly wobbly last night. Otherwise he does appear to be ambulating better today and they informed me that physical therapy is supposed to stop by to see him again to reassess him today as well. Otherwise he denies any headache, blurry vision, double vision. No nausea, vomiting, chest pain, shortness of breath and feels his appetite is good. OBJECTIVE: Temperature is 99.1, pulse 46, respiratory rate is 20, blood pressure 121/60, SpO2 is 94% on room air. Intake and output since midnight: 700 in and 900 out with a negative fluid balance of 200 mL. GENERAL: The patient appears to be in no acute distress. He is alert and oriented, pleasant to talk to. He does have wound sites on the left parietal and posterior portion of the scalp from the INTERNAL AUDIT CONSULTANT shunt placement, these appear to be granulating well and healing well with no signs of infection. Eyes are pupils equal, round, and reactive to light and accommodation. Throat clear. LUNGS: Clear. HEART: Regular rate and rhythm. ABDOMEN: Soft. EXTREMITIES: He did have some slight puffiness noted in the hands bilaterally. However, the extremities have no lower extremity edema or calf tenderness. Pulses are equal. Sensation is equal. LABORATORY DATA: White count is 9.2, hemoglobin 13.0, platelets are 165,000, sodium 142, potassium 3.5, chloride 105, bicarbonate 29, anion gap 8, BUN is 12, creatinine 0.91, glucose is 144, AST is 14, ALT 26, alkaline phosphatase 93, albumin is 2.9. ASSESSMENT/PLAN: 1. Normal pressure hydrocephalus status post INTERNAL AUDIT CONSULTANT shunt placement by Dr. Batista. The patient appears to be doing well. The wound sites appear to be healing well and he is to have physical therapy reevaluate him today to see how he is doing with his ambulation. Otherwise he does appear to be doing well and defer further issues regarding the INTERNAL AUDIT CONSULTANT shunt and normal pressure hydrocephalus to Dr. Batista's expertise. 2. Hypertension. I did go ahead and resume his lisinopril today with hold parameters. We will continue to monitor. 3. Slight drop in his hemoglobin, this likely is from hemodilution. I did review his intake and output for the last 48-72 hours and while he was receiving IV fluids he did have in excess of 2.5 to almost 3 liters of fluid. He does appear to be voiding fine. Today he is net negative. Will continue to follow him clinically. He does not otherwise show any physical signs of volume overload. 4. Diabetes type 2. His metformin and Januvia is currently on hold. Will continue with fingersticks before food and at bedtime, sliding scale coverage, and likely once he is discharged home will resume his metformin and Januvia at that time. 5. Hyperlipidemia. Stable on statin. 6. BPH. Continue Proscar. 7. DVT prophylaxis per surgical team. DISPOSITION: The patient does appear to be doing well and is medically stable and ready to be discharged any time the surgical team feels fit. Again he is likely to have physical therapy to see him today. However from a medical standpoint he does appear to be stable for discharge.
[2016-09-09] MEDS: LIDOCAINE 5% (LIDODERM) PATCH TD SCH (09:12)
[2016-09-09] MEDS: LISINOPRIL 5 MG TAB PO SCH (09:14)
--- NOTE | 2016-09-09 09:45 | REP ---
CT STUDY OF THE BRAIN WITHOUT CONTRAST: HISTORY: Postop ventriculoperitoneal shunt placement. COMPARISON STUDY: MRI study of the brain from the July 01, 2016 showing ventricular enlargement. FINDINGS: A right frontal [employer]ER[employer] PRO[employer] LEAD shunt is seen in place with adjacent scalp sutures and a small quantity of postoperative soft tissue air. There is a small pneumocephalus seen in the anterior subarachnoid space right frontal region just above the toño hole. The ventriculostomy catheter is seen entering the anterior horn of the right lateral ventricle and crossing the midline to terminate in the body of the left lateral ventricle. Ventricular size is essentially unchanged. There is no evidence of intracranial hemorrhage. IMPRESSION: Right-sided ventriculoperitoneal shunt catheter in place. Ventricle size essentially unchanged. No evidence of complication seen. Signed by Morris Fernandez MD 09/09/2016 06:17 P
--- NOTE | 2016-09-09 16:50 | IPN ---
DATE: 09/09/2016 NEUROSURGERY Patient was seen at bedside today. He reports e is continuing to improve. He is alert and oriented times three. He states surgery has helped him in many ways. He is no longer incontinent, his gait feels much more stable and he is shuffling less. He denies any current symptoms. He states he is feeling well. There are patchy blood spots on his bandage. No significant tenderness around the incision site. No drainage or erythema. Patient is using a walker during ambulation and his gait does appear to be improved with less shuffling. No focal deficits are noted. He has been afebrile. No new recommendations at this time.
[2016-09-09] MEDS: **NOTE PATIENT COMMENT** MISC XX SCH (21:00)
[2016-09-09] MEDS: FINASTERIDE 5 MG TAB PO SCH (21:25)
[2016-09-09] MEDS: ATORVASTATIN 20 MG TAB PO SCH (21:25)
[2016-09-10] VITALS (10 sets, daily range): BP systolic 109–122; BP diastolic 54–79
[2016-09-10] MEDS: NAFCILLIN SOD 1 GM in D5W MINI-BAG PLUS 100 ML IV SCH ×2 (04:43→11:49)
[2016-09-10 05:22] LABS: BASO % 0.3 % (0.0-1.0); EOS # 0.1 K/mm3 (0.0-0.50); EOS % 1.1 % (0.0-3.0); LARGE UNSTAINED CELL # 0.2 K/mm3 (0.0-0.4); LYMPH # 2.2 K/mm3 (1.5-4.5); LYMPH % 28.1 % (24.0-44.0); MEAN CORPUSCULAR HEMOGLOBIN 30.3 pg (27.0-33.0); MEAN CORPUSCULAR HGB CONC 34.4 g/dl (32.0-36.5); MEAN CORPUSCULAR VOLUME 88.3 fl (80.0-96.0); MONO # 0.6 K/mm3 (0.0-0.8); MONO % 8.1 % (0.0-5.0); NEUTROPHILS # 4.8 K/mm3 (1.8-7.7); NEUTROPHILS % 60.4 % (36.0-66.0); PLATELET COUNT, AUTOMATED 178 k/mm3 (150-450); RED CELL DISTRIBUTION WIDTH 12.5 % (11.5-14.5); WHITE BLOOD COUNT 7.9 K/mm3 (4.0-10.0)
[2016-09-10 05:37] LABS: ALBUMIN 3.1 GM/DL (3.2-5.2); ALBUMIN/GLOBULIN RATIO 0.97 (1.00-1.93); ALKALINE PHOSPHATASE 93 U/L (45-117); ALT/SGPT 31 U/L (12-78); ANION GAP 8 MEQ/L (8-16); AST/SGOT 16 U/L (15-37); BILIRUBIN,TOTAL 0.8 MG/DL (0.2-1.0); BLOOD UREA NITROGEN 9 MG/DL (7-18); CALCIUM LEVEL 8.2 MG/DL (8.8-10.2); CARBON DIOXIDE LEVEL 27 MEQ/L (21-32); CHLORIDE LEVEL 103 MEQ/L (98-107); CREATININE FOR GFR 0.81 MG/DL (0.70-1.30); GLOMERULAR FILTRATION RATE > 60.0 (>49); GLUCOSE, FASTING 134 MG/DL (80-110); POTASSIUM SERUM 3.8 MEQ/L (3.5-5.1); SODIUM LEVEL 138 MEQ/L (136-145); TOTAL PROTEIN 6.3 GM/DL (6.4-8.2)
[2016-09-10] MEDS ORDERED: PREVNAR 13 VACCINE SYRINGE (CPT CODE:90670) IM ONE (09:00)
[2016-09-10] MEDS: HumaLOG INSULIN (NovoLOG) PER UNIT SC SCH ×3 (09:11→18:03)
[2016-09-10] MEDS: LISINOPRIL 5 MG TAB PO SCH (09:12)
[2016-09-10] MEDS: LIDOCAINE 5% (LIDODERM) PATCH TD SCH (09:12)
[2016-09-10] MEDS: ACETAMINOPHEN TAB 650MG DOSE (2X325MG) PO PRN (10:43)
[2016-09-10] MEDS ORDERED: HYDR-3713 PO ×2 (19:46→19:48)
[2016-09-10] MEDS ORDERED: CIPR-250 PO ×2 (19:49→20:17)
[2016-09-10] MEDS ORDERED: NORC5TAB PO ×3 (20:10→20:16)
--- NOTE | 2016-09-13 05:08 | DSES ---
DATE OF ADMISSION: 09/07/2016 DATE OF DISCHARGE: 09/10/2016 SERVICE: Neurosurgery DISCHARGE DIAGNOSIS: Normal pressure hydrocephalus, dementia. Mr. Avendaño is a former smoker with a past medical history significant for normal pressure hydrocephalus, diabetes type 2, hypercholesterolemia, and hypertension. His normal pressure hydrocephalus (NPH) has been a chronic worsening problem since diagnosed in 2012. His symptoms include a shuffling gait, frequency of urination with occasional stress incontinence, and issues with short-term and long-term memory. We discussed all possible risks of surgery. Patient and his wished to proceed with surgery. PROCEDURE PERFORMED: On 09/07/2016, placement of Medtronic Strata valve programmed at 1.5. DIAGNOSTIC DATA: CT of brain without contrast on 09/09/2016, this is a postoperative ventriculoperitoneal shunt placement which shows a right-sided ventriculoperitoneal shunt catheter in place in right site. Ventricle size essentially unchanged. No evidence of complications seen. His labs have been stable. HOSPITAL COURSE: Patient was admitted to intensive care unit (ICU) following surgery. His hospital course has been uneventful. He shows no gross focal motor deficits noted on exam. He has remained afebrile. He denies any postoperative symptoms. He has been cleared for discharge to home. DISCHARGE MEDICATIONS: Include Cipro 250 mg by mouth twice a day times five days and Maskell 325 as needed for pain. DISCHARGE INSTRUCTIONS: The following discharge instructions have been discussed with the patient and his . 1. Keep area of incision and bandage completely dry until followup in the office within two weeks. 2. Monitor for signs and symptoms of infection as discussed. 3. Patient is to call the office for followup appointment in two weeks, or if any new symptoms, or any questions arise. 4. Patient is to continue preadmission medications as well as new medications of Cipro and Maskell. 5. Follow seizure precautions. 6. Diet as tolerated. 7. Activity as tolerated. 8. He is to take his temperature twice a day, call if his temperature becomes greater than or equal to 100 degrees Fahrenheit. All questions have been answered to patient and his 's satisfaction.
== END 2016-09-10 20:38 | disposition home or self-care (01) | DRG 27 ==
LOC: M OR 07:50 → M ICU 15:20
PROVIDERS: ADMIT Neurological Surgery; ATTEND Neurological Surgery
PROC: 0WJG4ZZ Inspection of Peritoneal Cavity, Percutaneous Endoscopic Approach (ICD-10-PCS; 2016-09-07)
PROC: 00B00ZX Excision of Brain, Open Approach, Diagnostic (ICD-10-PCS; principal; 2016-09-07 10:30)
PROC: 00160J6 Bypass Cerebral Ventricle to Peritoneal Cavity with Synthetic Substitute, Open Approach (ICD-10-PCS; 2016-09-07 10:30)
DX: G91.2 (Idiopathic) normal pressure hydrocephalus (principal); E11.9 Type 2 diabetes mellitus without complications; E78.00 Pure hypercholesterolemia, unspecified; I10 Essential (primary) hypertension; R26.89 Other abnormalities of gait and mobility; R35.0 Frequency of micturition; N39.3 Stress incontinence (female) (male); M19.90 Unspecified osteoarthritis, unspecified site; E78.5 Hyperlipidemia, unspecified; F03.90 Unspecified dementia, unspecified severity, without behavioral disturbance, psychotic disturbance, mood disturbance, and anxiety; M47.812 Spondylosis without myelopathy or radiculopathy, cervical region; N40.1 Benign prostatic hyperplasia with lower urinary tract symptoms; M46.1 Sacroiliitis, not elsewhere classified; M47.816 Spondylosis without myelopathy or radiculopathy, lumbar region; Z79.82 Long term (current) use of aspirin; Z79.84 Long term (current) use of oral hypoglycemic drugs; Z79.899 Other long term (current) drug therapy; Z96.642 Presence of left artificial hip joint; Z87.891 Personal history of nicotine dependence

== ENCOUNTER → 2016-10-14 | Outpatient (CLI) | payer MEDICARE, OTHER ==
[~2016-10-14] MED LIST changes: +CIPR-250 PO; +HYDR-3713 PO; +NORC1TAB4 PO
--- NOTE | 2016-10-14 18:35 | REP ---
CT HEAD WITHOUT CONTRAST: REASON: Followup. Patient has idiopathy NPH. COMPARISON: 09/09/2016 The slight degree of pneumocephalus seen on the prior exam has dissipated. There is unchanged gross ventriculomegaly unchanged. There is ifeanyi cisterna magna unchanged. The ventriculostomy catheter is unchanged in position. There are no acute changes compared to the prior exam with the exception of possible slight lucency surrounding the entry points of the ventriculostomy catheter through the right frontal lobe. I suspect this would be a normal continuum but should be correlated clinically. IMPRESSION: No significant change but with findings as described above. Signed by Herb Argueta DO 10/16/2016 03:43 P
== END ==
LOC: M RAD 16:49
PROVIDERS: ATTEND Neurological Surgery
DX: G91.2 (Idiopathic) normal pressure hydrocephalus (principal)

== ENCOUNTER → 2017-01-05 | Outpatient (CLI) | payer MEDICARE, OTHER ==
[~2017-01-05] MED LIST changes: -METF500T PO; +METF500T13 PO
--- NOTE | 2017-01-05 18:17 | REP ---
HISTORY: History of normal pressure hydrocephalus. Now having a headache. COMPARISON: 10/14/2016 An intraventricular shunt is again seen, unchanged in position. The degree of hydrocephalus is unchanged. The tiny pneumocephalus seen on the prior exam has resolved. There is no evidence of an acute intracranial hemorrhagic or nonhemorrhagic event. There is no change in the skull. There is no change in the appearance of the paranasal sinuses or mastoid air cells. IMPRESSION: No significant change with findings as described above. Signed by Herb Argueta DO 01/05/2017 06:28 P
== END ==
LOC: M RAD 16:40
PROVIDERS: ATTEND Neurological Surgery
DX: G91.2 (Idiopathic) normal pressure hydrocephalus (principal)

== ENCOUNTER → 2017-01-18 | Outpatient (CLI) | payer MEDICARE, OTHER ==
--- NOTE | 2017-01-18 09:51 | REP ---
REASON: History of normal pressure hydrocephalus. COMPARISON: 01/05/2017. There is ventriculomegaly status quo. The intraventricular shunt catheter is unchanged. There is no evidence of acute transependymal flow. There is no evidence of an acute intracranial hemorrhagic or non-hemorrhagic event. There is no change in the skull. IMPRESSION: No change. Signed by Herb Argueta DO 01/18/2017 01:22 P
== END ==
LOC: M RAD 07:34
PROVIDERS: ATTEND Neurological Surgery
DX: G91.2 (Idiopathic) normal pressure hydrocephalus (principal); F03.90 Unspecified dementia, unspecified severity, without behavioral disturbance, psychotic disturbance, mood disturbance, and anxiety

== ENCOUNTER → 2017-02-15 | Outpatient (CLI) | payer MEDICARE, OTHER ==
--- NOTE | 2017-02-15 15:02 | REP ---
CT HEAD WITHOUT CONTRAST: HISTORY: Normal pressure hydrocephalus. COMPARISON: 01/18/2017. Areas of decreased attenuation are present in the periventricular white matter. This represents small vessel ischemic disease. There is no intraparenchymal hemorrhage, mass or midline shift. A shunt is present in the anterior horn of the left lateral ventricle. There is dilatation of the ventricular system consistent with moderate hydrocephalus that is unchanged compared to the previous study. A ifeanyi cisterna magna is present. There is no extracerebral collection. The visualized sinuses are clear. IMPRESSION: 1. Small vessel ischemic disease. 2. Moderate hydrocephalus unchanged compared to the previous study. A shunt is present in the left lateral ventricle. Signed by Jc Rush MD 02/15/2017 03:15 P
== END ==
LOC: M RAD 14:09
PROVIDERS: ATTEND Neurological Surgery
DX: G91.2 (Idiopathic) normal pressure hydrocephalus (principal)